=== PATIENT | male | born 1965 | race Caucasian/White ===

== ENCOUNTER → 2018-09-24 09:40 | Outpatient (CLI) | payer OTHER, SELFPAY ==
--- NOTE | 2018-09-24 | DI.RAD.S_ITS ---
PROCEDURE: XR CHEST 2V INDICATIONS: COUGH TECHNIQUE: 2 views of the chest were acquired. COMPARISON: None. FINDINGS: Surgical changes and devices: None. Lungs and pleura: No pleural effusions or pneumothorax. Mildly increased vascular markings and bilateral hilar region are seen with mild nodular wall thickening. No focal infiltrate. Mediastinum: Mediastinal contours are normal. Heart size is normal. Bones and chest wall: No suspicious bony abnormalities. Soft tissues appear unremarkable. IMPRESSION: Suggestion of mild reactive airway disease such as bronchitis or asthma. No focal infiltrate. Dictated by: Rainer Bustillo M.D. on 09/24/2018 at 11:24 Approved by: Rainer Bustillo M.D. on 09/24/2018 at 11:26
== END ==
DX: R05 Cough (principal)
CPT/HCPCS: 71046

== ENCOUNTER 2019-11-16 14:46 | Emergency (ER) | payer OTHER, SELFPAY ==
[2019-11-16 15:02] VITALS: BP 123/58; PULSE 97; RESP 18; TEMP 38.7; O2SAT 97; BMI 22.3
[2019-11-16 15:52] LABS: Influenza B - CEPHEID Flu B NEGATIVE (NEGATIVE)
[2019-11-16 16:19] LABS: Influenza A - CEPHEID Flu A POSITIVE (NEGATIVE)
[2019-11-16] MEDS: IBUPROFEN 400 MG TABLET PO (16:32)
--- NOTE | 2019-11-16 16:33 | ED_ITS ---
HPI - Fever <KWAME Viera - Last Filed: 11/16/19 21:11> General Chief Complaint: Fever Stated Complaint: Flu Like Symptoms Time Seen by Provider: 11/16/19 16:14 Source: patient Mode of arrival: Ambulatory Limitations: no limitations History of Present Illness HPI Narrative: 54-year-old male with history of IgG immune deficiency and exercise-induced asthma, presents emergency department complaining of rhinorrhea, cough, and fevers for the past 36 hours. He states he originally developed rhinorrhea and a dry cough 36 hours ago and developed a fever of 101F today. Patient states he travels for work but states he has not been to [facility] in the past 14 days. Patient states he did get a influenza vaccination this year. Patient states he takes Advair daily for his asthma and he feels like it is a little bit worse with chest congestion today with a cough but denies any wheezing or significant shortness of breath. Patient denies vomiting, diarrhea, abdominal pain, chest pain, or other concerns. Patient states he took 200 mg of ibuprofen at 10:00 a.m. and a pill of cold medication a few hours later. Related Data Previous Rx's Medication Instructions Recorded albuterol sulfate 2 puff INHALATION Q4-6H PRN #8.5 11/16/19 gram oseltamivir [Tamiflu] 75 mg PO BID 5 Days #10 cap 11/16/19 Allergies Allergy/AdvReac Type Severity Reaction Status Date / Time No Known Drug Allergies Allergy Verified 11/16/19 15:02 Review of Systems <KWAME Viera - Last Filed: 11/16/19 21:11> Review of Systems Narrative: REVIEW OF SYSTEMS: GENERAL: Reports fevers, see HPI. HENT: No head trauma or hearing loss. Reports rhinorrhea, see HPI. EYES: No vision changes. CARDIOVASCULAR: No chest pain or syncope. RESPIRATORY: Reports cough, see HPI. GASTROINTESTINAL: No vomiting, diarrhea, or constipation. MUSCULOSKELETAL: No trauma. INTEGUMENTARY: No rash, lesions, or pruritus. NEURO: No memory loss, or confusion. Patient History <KWAME Viera - Last Filed: 11/16/19 21:11> Medical History IgG deficiency (Acute) Social History Smoking Status: Never smoker Smoking Status: Never smoker alcohol intake frequency: a few times a month Substance Use Type: does not use Exam <KWAME Viera - Last Filed: 11/16/19 21:11> Initial Vital Signs Initial Vital Signs: Vital Signs Temperature 101.6 F H 11/16/19 15:02 Pulse Rate 97 H 11/16/19 15:02 Respiratory Rate 18 11/16/19 15:02 Blood Pressure 123/58 L 11/16/19 15:02 Pulse Oximetry 97 11/16/19 15:02 PHYSICAL EXAMINATION: GENERAL: Well groomed, alert, and cooperative. Answers questions promptly and appropriately. Vital signs noted. HENT: Normocephalic, atraumatic. Nares with clear rhinorrhea. Oropharynx with moderate erythema, tonsils not present, no exudate. EYES: Conjunctiva pink, sclera white, no periorbital swelling. No discharge. CHEST: Normal to inspection and without deformities. CARDIOVASCULAR: S1 and S2 sounds normal. Regular rate and rhythm, no murmurs, clicks, or bruits. RESPIRATORY: Normal respiratory rate, trachea midline, airway patent. No stridor, nasal flaring or accessory muscle use. Able to speak in full sentences. Lungs are clear in all trujillo without wheeze, rhonchi, or crackles. Dry cough heard occasionally during examination. MUSCULOSKELETAL: Normal gait and coordination. Equal tone and mass bilaterally. : Abdomen soft and nontender. EXTREMITIES: Moves all extremities. SKIN: Warm, dry, soft, appropriate color for ethnicity. No lesions, rashes, or wounds to visualized areas. NEURO: Alert and Oriented X 3. Good coordination. No ataxia or cognitive issues. PSYCH: Appropriate affect and mood. <Rosi Edwards MD - Last Filed: 11/30/19 18:38> Initial Vital Signs Initial Vital Signs: Vital Signs Temperature 101.6 F H 11/16/19 15:02 Pulse Rate 97 H 11/16/19 15:02 Respiratory Rate 18 11/16/19 15:02 Blood Pressure 123/58 L 11/16/19 15:02 Pulse Oximetry 97 11/16/19 15:02 Course <KWAME Viera - Last Filed: 11/16/19 21:11> Course Course Narrative: Patient was given ibuprofen in the emergency department to help with fever. Orders Ordered: Discontinued Medications Ibuprofen (Advil) 400 mg PO NOW ONE Stop: 11/16/19 16:29 Last Admin: 11/16/19 16:32 Dose: 400 mg Documented by: TYLER Vital Signs Vital signs: Vital Signs - 8 hr 11/16/19 15:02 11/16/19 16:45 Temperature 101.6 F H Pulse Rate 97 H 93 H Respiratory Rate 18 22 Blood Pressure 123/58 L 128/60 Pulse Oximetry 97 97 <Rosi Edwards MD - Last Filed: 11/30/19 18:38> Orders Ordered: Discontinued Medications Ibuprofen (Advil) 400 mg PO NOW ONE Stop: 11/16/19 16:29 Last Admin: 11/16/19 16:32 Dose: 400 mg Documented by: TYLER Vital Signs Vital signs: Vital Signs - 8 hr 11/16/19 15:02 11/16/19 16:45 Temperature 101.6 F H Pulse Rate 97 H 93 H Respiratory Rate 18 22 Blood Pressure 123/58 L 128/60 Pulse Oximetry 97 97 MDM - Fever <KWAME Viera - Last Filed: 11/16/19 21:11> Medical Records Attestation: I reviewed the patient's medical records. Lab Data Attestation: I reviewed the patient's lab results. Labs: Lab Results 11/16/19 Range/Units 15:07 Influenza A (RT-PCR) Flu a positive H (NEGATIVE) Influenza B (RT-PCR) Flu b negative (NEGATIVE) MDM Narrative Medical decision making narrative: This is a 54-year-old male with history of IgG immunodeficiency and exercise-induced asthma presents emergency department with rhinorrhea, cough, and fever for the past 36 hours. Patient was prescribed Tamiflu as he remains in the beneficial window and reports history of immunodeficiency. Respiratory Test is positive for influenza A. Patient does not show any signs of respiratory distress and lung examination is benign, no indication for imaging needed at this time. However, I did prescribe an albuterol inhaler as he states he has not used this for a while in case his cough or to worsen and for reports of chest congestion. Patient was educated about the importance of follow-up especially if symptoms worsen and or continue. Increased plan of care verbalized understanding. Less likely sepsis due to lack of other significant symptoms such as abdominal pain, wounds, lacerations, and a positive influenza test. <Rosi Edwards MD - Last Filed: 11/30/19 18:38> Lab Data Labs: Lab Results 11/16/19 Range/Units 15:07 Influenza A (RT-PCR) Flu a positive H (NEGATIVE) Influenza B (RT-PCR) Flu b negative (NEGATIVE) Discharge Plan Departure Patient Disposition: Home Clinical Impression: Influenza A Discharge Date/Time: 11/16/19 16:45 Instructions: DI for Influenza -- Adult Activity Restrictions/Additional Instructions: Thank you for entrusting me with your care today. As discussed, you tested positive for influenza A. I prescribed you Tamiflu to help decrease the severity and duration of your symptoms. I have also prescribed you albuterol to help with your asthma if it becomes worse, you may take this every 4-6 hours as needed for cough, shortness of breath, or wheezes. Follow up with your primary care provider in 1-2 weeks if your symptoms continue and return emergency department immediately if you develop worsening symptoms such as shortness of breath, chest pain, syncope, or other concerns. Prescriptions: New oseltamivir [Tamiflu] 75 mg capsule 75 mg PO BID 5 Days Qty: 10 RF: 0 albuterol sulfate 90 mcg/actuation HFA aerosol inhaler 2 puff INHALATION Q4-6H PRN (Reason: shortness of breath or wheezing) Qty: 8.5 RF: 0 Referrals: Justyn Guardado MD [Primary Care Provider] -
[2019-11-16 16:45] VITALS: BP 128/60; PULSE 93; RESP 22; O2SAT 97
== END 2019-11-16 16:45 | disposition home or self-care (01) ==
PROVIDERS: Emergency Medicine; Emergency Provider Nurse Practitioner; PCP Family Medicine
DX: J10.1 Influenza due to other identified influenza virus with other respiratory manifestations (principal)
CPT/HCPCS: 87502; 99283

== ENCOUNTER → 2020-02-05 15:51 | Outpatient (CLI) | payer OTHER, SELFPAY ==
--- NOTE | 2020-02-05 | DI.MRI.S_ITS ---
PROCEDURE: MR KNEE RT WO CON INDICATIONS: Other specified joint disorders, unspecified knee TECHNIQUE: Noncontrast sagittal PD fast spin echo and T2 fast spin echo with fat saturation, sagittal 3-D FLASH with fat saturation; coronal T1 spin echo and PD fast spin echo with fat saturation, and axial PD fast spin echo with fat saturation through the knee. COMPARISON: None. FINDINGS: Image quality: Excellent. Menisci: The medial and lateral menisci demonstrate normal morphology and internal signal. The meniscal root ligaments appear intact. Cruciate ligaments: The anterior and posterior cruciate ligaments appear intact. Medial structures: Low-grade MCL sprain is seen near its femoral insertion. The posterior oblique ligament, semimembranosus tendon insertions, oblique popliteal ligament, and meniscocapsular junction appear intact. Visualized portions of the pes anserinus tendons appear normal. No abnormal bursal fluid. Lateral structures: The lateral collateral ligament, long and short heads of the biceps femoris tendon appear intact. The popliteus tendon appears normal; the popliteofibular ligament appears intact. The posterosuperior and anteroinferior popliteomeniscal fascicles appear intact. The arcuate and fabellofibular ligaments appear intact, on either side of the lateral inferior geniculate artery. Iliotibial band appears normal. Anterior structures: The quadriceps and patellar tendons appear intact. Patellar alignment is normal. No femoral trochlear dysplasia or ventral trochlear prominence. No edema in the infrapatellar fat pad. Bones and cartilage: Mild to moderate tricompartmental osteoarthritis is seen more prominent in the medial femoral tibial compartment. Low grade chondromalacia in medial femoral tibial compartment is noted. High-grade chondromalacia involving medial facet of patella cartilage with underlying subchondral cyst formation and edema is noted, small osteochondral lesion is likely present and measures up to 4 mm in size. Low to moderate grade chondromalacia involving the lateral facet and apex of patella cartilage is also seen. Joint space: There is small to moderate amount of joint fluid, no gross intra-articular loose body. No Slater's cyst. Normal appearing synovial plicae are incidentally noted. IMPRESSION: 1. [id number] tricompartmental osteoarthritis more prominent in the medial femorotibial compartment. Low-grade chondromalacia in medial and lateral femoral tibial compartments. Moderate to high-grade chondromalacia involving medial facet of patella cartilage with underlying 3-4 mm osteochondral lesions. Low to moderate grade chondromalacia involving apex and lateral facet of patella cartilage. No fracture or dislocation. 2. Cruciate ligaments are intact. Low-grade proximal MCL sprain. 3. No evidence of focal meniscal tear. 4. Small to moderate joint effusion. No gross intra-articular loose body. Dictated by: Rainer Bustillo M.D. on 02/06/2020 at 9:22 Approved by: Rainer Bustillo M.D. on 02/06/2020 at 9:44
== END ==
PROVIDERS: PCP Family Medicine; Referring Provider Orthopaedic Surgery; Visit Provider Orthopaedic Surgery
DX: S83.411A Sprain of medial collateral ligament of right knee, initial encounter (principal); M17.11 Unilateral primary osteoarthritis, right knee; M22.41 Chondromalacia patellae, right knee
CPT/HCPCS: 73721

== ENCOUNTER → 2020-07-07 11:31 | Outpatient (CLI) | payer OTHER, SELFPAY ==
[2020-07-08 09:35] LABS: COVID19 Sendout Not Detected (Not Detect)
== END ==
PROVIDERS: PCP Family Medicine; Visit Provider Physician Assistant
DX: Z11.59 Encounter for screening for other viral diseases (principal)
CPT/HCPCS: 87635

== ENCOUNTER → 2020-07-23 12:50 | Outpatient (CLI) | payer OTHER, SELFPAY ==
--- NOTE | 2020-07-23 | DI.RAD.S_ITS ---
PROCEDURE: XR CHEST 2V INDICATIONS: Chest pain, unspecified TECHNIQUE: 2 views of the chest were acquired. COMPARISON: [facility], CR, XR CHEST 2V, 09/24/2018, 9:40. FINDINGS: Surgical changes and devices: None. Lungs and pleura: Lungs are clear. No pleural effusions or pneumothorax. Mediastinum: Mediastinal contours are normal. Heart size is normal. Bones and chest wall: No suspicious bony abnormalities. Soft tissues appear unremarkable. IMPRESSION: No acute finding. Dictated by: Rehan Mejia M.D. on 07/23/2020 at 13:40 Approved by: Rehan Mejia M.D. on 07/23/2020 at 13:55
== END ==
PROVIDERS: PCP Family Medicine; Referring Provider Family Medicine; Visit Provider Family Medicine
DX: R07.9 Chest pain, unspecified (principal)
CPT/HCPCS: 71046

== ENCOUNTER → 2020-09-19 08:54 | Outpatient (CLI) | payer OTHER, SELFPAY ==
[2020-09-19 11:33] LABS: COVID19 -Nasal RAPID Negative (Negative)
== END ==
PROVIDERS: PCP Family Medicine; Visit Provider Nurse Practitioner
DX: Z11.59 Encounter for screening for other viral diseases (principal)
CPT/HCPCS: 87635

== ENCOUNTER 2020-09-21 13:17 | Day surgery (SDC) | payer OTHER, SELFPAY ==
--- NOTE | 2020-09-21 12:18 | P.HP_ITS ---
History of Present Illness History of Present Illness Date Patient Seen: 09/21/20 Chief complaint: SDC Narrative: 55 year old male in comes in today for consideration of a screening colonoscopy. One previous colonoscopy secondary to GI upset, reportedly normal. Results not available at time of dictation. There have been no lower GI symptoms suggesting disease such as change in bowel habits, bleeding, abdominal pain or anemia. There's been no known family history of colon cancer or colon polyps, adopted. Overall health issues have been stable, including no major cardiac events for at least 6 weeks. PCP: Dr. 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 Patient History Medical History (Updated 12/01/19 @ 00:00 by ) IgG deficiency Family & Social History Tobacco & Substance use: Smoking Status Never smoker alcohol intake frequency a few times a month Substance Use Type does not use Meds Home Medications and Allergies Home Medications Medication Instructions Recorded Confirmed Type albuterol sulfate 2 puff INHALATION Q4-6H PRN #8.5 11/16/19 09/21/20 Rx gram esomeprazole magnesium [Nexium] 10 mg PO 09/21/20 History pravastatin 20 mg PO BEDTIME 09/21/20 09/21/20 History Allergies Allergy/AdvReac Type Severity Reaction Status Date / Time No Known Drug Allergies Allergy Verified 07/07/20 11:29 Review of Systems Review of Systems ROS: Yes All systems reviewed with the patient and are negative except as other weaver documented Exam Narrative Exam Narrative: GENERAL: Alert and oriented, appearing stated age and in no acute distress. HEENT: Head normocephalic/atraumatic. Pupils equal, round, and reactive to light and accomodation. Extraocular muscles intact. Tympanic membranes clear. Nasal mucosa moist, septum midline. Oral mucosa moist, no lesions. Neck soft and supple, no lymphadenopathy. LUNGS: Clear to ausculation bilaterally, no wheezes, rhonchi or rales. CV: Normal S1 and S2 with regular rate and rhythm, no audible murmurs, rubs or gallops. ABDOMEN: Soft, non-tender, non-distended, no organomegaly. Positive bowel sounds. EXTREMITIES: No clubbing, cyanosis, or edema. NEURO: Cranial nerves II through XII grossly intact, no focal deficits. PSYCH: Alert and oriented x 3. SKIN: No concerning lesions. Assessment & Plan Assessment & Plan narrative: 1. Screening for colon cancer Plan for colonoscopy. The nature and character of the procedure as well as anticipated results were discussed. The possibility of not completing the procedure was also discussed. Possible complications including aspiration pneumonia, bleeding, perforation and reaction to medications either for sedation or preparation and missed lesions were discussed. Questions were answered and proceeding to the colonoscopy was elected. Informed consent signed. I sincerely appreciate the referral allowing me to participate in this patient's care. Please contact me with any questions or concerns.
--- NOTE | 2020-09-21 12:22 | PM.OP.ENDO ---
Operative Date/Time/Diagnoses Date of procedure: 09/21/20 Procedure Notes SCOAP/Timeout: 2:55 p.m. Procedure in detail: ENDOSCOPIST: Courtney Louis MD Sedation RN: Jonathan Epps RN Sedation start time: 2:56 p.m. Sedation end time: 3:20 p.m. PROCEDURE: Colonoscopy INDICATIONS: 1. Screening for colon cancer MEDICATION: Levsin 0.125 mg sublingual, incremental doses of Versed and fentanyl until appropriate level sedation achieved. ASA CLASS: 2 CECAL WITHDRAWAL TIME: 13 minutes COMPLICATIONS: None. EXTENT OF PROCEDURE: Cecum. QUALITY OF PREP: Good with portions of liquid stool. PROCEDURE: Prior to insertion of the colonoscope, a digital rectal examination was accomplished with circumferential palpation of the distal rectal mucosa without significant findings being noted. The high-definition colonoscope was passed into the rectum in the usual fashion and advanced over to the cecum without difficulty. The ileocecal valve, appendiceal stoma, and medial wall all could be inspected and no abnormalities were seen. ASCENDING COLON: As the colonoscope was withdrawn, care was taken to expose and inspect the haustral folds and no abnormalities were seen. HEPATIC FLEXURE: Normal, no polyps, diverticula or other abnormalities. TRANSVERSE COLON: Normal, no polyps, diverticula or other abnormalities. DESCENDING COLON: Normal, no polyps, diverticula or other abnormalities. SIGMOID COLON: Normal, no polyps, diverticula or other abnormalities. RECTUM: Normal. J maneuver was produced. There was no significant perianal disease. The J maneuver was broken. The remainder of the rectum was inspected and there was no external hemorrhoid disease. The scope was withdrawn. IMPRESSION: 1. Normal colonoscopy PLAN: 1. Repeat colonoscopy in 10 years. The possibility of a missed lesion including a malignancy has been discussed with the patient previously. Potential alarm symptoms have been discussed and should be reported immediately.
[2020-09-21 13:36] VITALS: BMI 47.6
[2020-09-21] MEDS: LACTATED RINGERS 1,000 ML 200 ML IV (13:40)
[2020-09-21] MEDS: HYOSCYAMINE 0.125 MG TABLET PO (14:01)
[2020-09-21] MEDS: MIDAZOLAM 5 MG/5 ML VIAL IV (14:59)
[2020-09-21] MEDS: fentaNYL 250 MCG/5 ML INJ IV (14:59)
[2020-09-21 15:26] VITALS: BP 104/61; PULSE 51; RESP 16; TEMP 37.1; O2SAT 97
[2020-09-21 15:31] VITALS: BP 103/66; PULSE 61; RESP 12; O2SAT 98
[2020-09-21 15:36] VITALS: BP 106/58; PULSE 53; RESP 16; O2SAT 97
[2020-09-21 15:39] VITALS: BP 116/72; PULSE 58; RESP 15; TEMP 37.1; O2SAT 98
--- NOTE | 2020-09-21 15:57 | SUR.PHASEII ---
Pt up and ambulating gait steady, TONY Wong giving pt all dc instructions and then dc pt in stable condition via wc to front curbside
== END 2020-09-21 15:58 | disposition home or self-care (01) ==
PROVIDERS: PCP Family Medicine; Referring Provider Family Medicine; Visit Provider Student in an Organized Health Care Education/Training Program
PROC: 0DJD8ZZ Inspection of Lower Intestinal Tract, Via Natural or Artificial Opening Endoscopic (ICD-10-PCS; CPT 45378; principal; 2020-09-21 14:30)
DX: Z12.11 Encounter for screening for malignant neoplasm of colon (principal); E78.5 Hyperlipidemia, unspecified; K21.9 Gastro-esophageal reflux disease without esophagitis; J45.909 Unspecified asthma, uncomplicated; N40.0 Benign prostatic hyperplasia without lower urinary tract symptoms
CPT/HCPCS: 45378; J2250; J3010

== ENCOUNTER → 2021-04-05 07:59 | Outpatient (CLI) | payer OTHER, SELFPAY ==
--- NOTE | 2021-04-05 08:01 | DI.ECHO.S_ITS ---
[place] [facility] +---------+ : : [address] : : : : [id number] : : : : Phone: [phone] Echocardiogram Report + + :Name: SUSANA STEVE Study Date: 04/05/2021 Height: 71 in : :[facility] ReadingLocation: Weight: 155 lb : : Gender: Male BSA: 1.9 m2 : :: 1965 Age: 55 yrs BP: 112/73 mmHg: :Reason For Study: PALPITATIONS : :Ordering Physician: EFRAIN, : :CORY Performed By: Karen Beck : :Referring: CORY ZUNIGA : + + Interpretation Summary Patient states history of PFO with positive bubble study. Normal left ventricle size with ejection fraction 50-55%. Borderline global hypokinesis of the left ventricle. Left ventricular global longitudinal strain average is -18.5%. Mildly dilated left atrium. No significant valvular abnormality. Procedure: A two-dimensional transthoracic echocardiogram with color flow and Doppler was performed. The study quality was technically adequate. There is no prior echocardiogram noted for this patient. The patient was in sinus bradycardia with heart rates between 46-52 bpm during the exam. Left Ventricle: The left ventricle is normal in size and wall thickness. The ejection fraction is estimated to be 50-55%. Left ventricular global longitudinal strain average is -18.5%. There is borderline global hypokinesis of the left ventricle. Diastolic parameters suggest probable normal left ventricular diastolic function and normal filling pressures. Right Ventricle: The right ventricle is normal in size and function. Atria: The left atrium is mildly dilated. Right atrial size is normal. Mitral Valve: There is a flat closure plane of the the mitral valve leaflets. The mitral valve is normal in structure and function. There is trace mitral regurgitation. Aortic Valve: The aortic valve is trileaflet. The aortic valve opens well. There is no aortic valve stenosis. There is trace aortic regurgitation. Tricuspid Valve: The tricuspid valve is normal in structure and function. There is trace tricuspid regurgitation. Pulmonic Valve: The pulmonic valve leaflets are thin and pliable; valve motion is normal. There is mild pulmonic regurgitation. Great Vessels: The aortic root is normal size. The ascending aorta is mildly enlarged. The IVC is of normal diameter and collapses greater than 50% with a sniff. This suggests a low right atrial pressure of 3 mm Hg. Pericardium/ Pleura There is no pericardial effusion. There is no pleural effusion. MMode/2D Measurements & Calculations LVIDd: 5.5 cm LVOT diam: 2.5 cm LVIDs: 4.1 cm Ao root diam: 3.3 cm FS: 25.3 % asc Aorta Diam: 3.5 cm EPSS: 1.4 cm Ao Arch Diam (Prox Trans): 2.6 cm IVSd: 0.84 cm LVPWd: 0.82 cm LV morataya. diameter/BSA (cm/m^2): 2.9 LV sys. diameter/BSA (cm/m^2): 2.2 LA A2 area: 22.0 cm2 RA long axis: 5.3 cm LA A4 area: 18.9 cm2 RA area: 18.9 cm2 LA length (vol): 5.2 cm RA vol: 57.7 ml LA vol: 68.1 ml RA : 30.5 ml/m2 LA vol index: 36.0 ml/m2 IVC diam: 1.8 cm RVD1 (basal): 4.3 cm RVD2 (mid): 3.8 cm TAPSE: 2.0 cm Doppler Measurements & Calculations Ao V2 max: 131.0 cm/sec LVOT Max Kamaljit: 74.8 cm/sec Ao V2 mean: 94.7 cm/sec LV V1 max P.2 mmHg Ao max P.9 mmHg LV V1 VTI: 15.7 cm Ao mean P.0 mmHg TIFFANIE(I,D): 2.6 cm2 Ao V2 VTI: 29.2 cm TIFFANIE(V,D): 2.8 cm2 sev ratio: 0.54 TIFFANIE indexed to BSA (cm^2/m^2): 1.4 MV E max kamaljit: 74.2 cm/sec TR max kamaljti: 200.6 cm/sec MV A max kamaljit: 48.7 cm/sec TR max P.1 mmHg MV E/A: 1.5 PA V2 max: 86.6 cm/sec Med Peak E' Kamaljit: 5.8 cm/sec PA V2 mean: 55.4 cm/sec E/E' med: 12.8 PA mean P.4 mmHg Lat Peak E' Kamaljit: 9.9 cm/sec PA pr(Accel): 31.0 mmHg E/E' lat: 7.5 E/e' average: 10.2 MV dec time: 0.16 sec SV(LVOT): 76.3 ml Electronically signed by: Gem Villar on Reading Physician:04/06/2021 09:34 AM
== END ==
PROVIDERS: PCP Family Medicine; Referring Provider Internal Medicine; Visit Provider Internal Medicine
DX: I37.1 Nonrheumatic pulmonary valve insufficiency (principal); I77.89 Other specified disorders of arteries and arterioles; R00.2 Palpitations
CPT/HCPCS: 93306

== ENCOUNTER → 2021-05-20 08:58 | Outpatient (CLI) | payer OTHER, SELFPAY ==
[2021-05-20 10:32] LABS: COVID19 -Nasal RAPID Negative (Negative)
== END ==
PROVIDERS: PCP Family Medicine; Visit Provider Specialist
DX: Z20.822 Contact with and (suspected) exposure to COVID-19 (principal)
CPT/HCPCS: 87635; C9803

== ENCOUNTER 2021-05-21 06:50 | Day surgery (SDC) | payer OTHER, SELFPAY ==
[2021-05-21] VITALS (7 sets, daily range): BP systolic 96–112; BP diastolic 56–69; PULSE 47–61; RESP 10–18; TEMP 36.3–36.6; O2SAT 96–99; BMI 22.6
--- NOTE | 2021-05-21 | PATH_ITS ---
[facility] Accession Number: [id number] . 01 Material submitted: . PART A: stomach - GASTRIC ANTRUM PART B: esophagus, E-G Junction - GE JUNCTION . 02 Diagnosis: A. Gastric Antrum, Biopsies: Gastric antral and body mucosa with minimal chronic inflammation and features of reactive gastropathy. Negative for Helicobacter organisms by immunohistochemistry. Negative for intestinal metaplasia. Negative for dysplasia or malignancy. . B. Gastroesophageal Junction, Biopsy: Squamocolumnar junctional mucosa with reactive features of reflux esophagitis. Negative for specialized intestinal metaplasia or fungal organisms on AB/PAS stain. Negative for dysplasia or malignancy. MRV 05/26/2021 1308 Local . 02 Electronically signed: . Ayan Duke MD, PhD, Pathologist NPI- [id number] . 01 Gross description: . Part A: GASTRIC ANTRUM: Received in formalin are multiple fragment(s) of hurtado, soft tissue measuring 0.9 x 0.4 x 0.2 cm in aggregate submitted entirely in 1 cassette(s) Part B: GE JUNCTION: Received in formalin are multiple fragment(s) of hurtado, soft tissue measuring 0.7 x 0.4 x 0.1 cm in aggregate submitted entirely in 1 cassette(s) /TIFFANIE 05/22/2021 0522 Local . 02 Microscopic: . A. An immunohistochemical stain was performed to evaluate for Helicobacter organisms and is negative. The control stain showed appropriate reactivity. . B. An AB/PAS stain is negative for goblet cells or fungal organisms. A control stain shows appropriate reactivity. . . * This test was developed and its performance characteristics determined by [facility]. It has not been cleared or approved by the U.S. Food and Drug Administration. The FDA has determined that such clearance or approval is not necessary. This test is used for clinical purposes. It should not be regarded as investigational or for research. . 02 Pathologist provided ICD-10: K29.70, K21.00 . 02 CPT . 105314, 396925, Y38030, [id number] Performed at: 01 [facility] [address] [id number] MD Roger Cantor MD Phone: [phone] Performed at: [address] [id number] MD Yasmine Spann MD Phone: [phone]
[2021-05-21] MEDS: LACTATED RINGERS 1,000 ML 100 ML IV (07:22)
--- NOTE | 2021-05-21 07:40 | P.HP_ITS ---
History of Present Illness History of Present Illness Chief complaint: [facility] [place] Narrative: The patient is gentleman who is been having problems with vague throat discomfort on the right side. He has seen an ENT physician who was concerned could be due to reflux which she has chronically. His dose of proton pump inhibitors was increased but no affect on this throat sensation. He is brought in for an EGD. Patient History Medical History Asthma GERD (gastroesophageal reflux disease) High cholesterol IgG deficiency SLAP lesion of left shoulder Surgical History H/O lumbosacral spine surgery H/O shoulder surgery H/O sinus surgery H/O Spinal surgery Family & Social History Social History: household members spouse Tobacco & Substance use: Smoking Status Never smoker alcohol intake current alcohol intake frequency a few times a week Substance Use Type does not use Meds Home Medications and Allergies Home Medications Medication Instructions Recorded Confirmed Type albuterol sulfate 90 mcg/actuation 2 puff INHALATION Q4-6H PRN #8.5 11/16/19 05/21/21 Rx aerosol inhaler gram esomeprazole magnesium 20 mg 10 mg PO 09/21/20 04/08/21 History capsule,delayed release (Nexium) pravastatin 20 mg tablet 20 mg PO BEDTIME 09/21/20 05/21/21 History cholecalciferol (vitamin D3) 125 5,000 unit PO DAILY tab 04/08/21 04/08/21 History mcg (5,000 unit) tablet (Vitamin D3) loratadine 10 mg tablet (Claritin) 10 mg PO DAILY 04/08/21 05/21/21 History omega 6-lje-vtu-fish oil 1,200 mg cap PO 04/08/21 04/08/21 History (144 mg-216 mg) capsule (Fish Oil) Allergies Allergy/AdvReac Type Severity Reaction Status Date / Time No Known Drug Allergies Allergy Verified 05/21/21 07:13 Review of Systems Review of Systems Narrative: No cardiac GI or symptoms except as above. Patient does use an inhaler Exam Vital Signs (past 8 hours): - 05/21/21 07:23 Temperature 97.3 F L Pulse Rate 57 L Respiratory Rate 18 Blood Pressure 112/69 Pulse Oximetry 99 Oxygen Delivery Method Room Air Narrative Exam Narrative: Pleasant cooperative patient no apparent distress. Lungs are clear to auscultation. No rales or rhonchi. Heart regular rate and rhythm no murmur gallop. Abdomen is soft nontender without mass. No obvious hernias. Patient is alert and oriented x3. Assessment & Plan Assessment & Plan narrative: Patient for an EGD. He understands the procedures he has had a before the risks of bleeding and perforation
--- NOTE | 2021-05-21 07:44 | PM.PREOP ---
Pre-operative Note COVID-19 COVID-19 status: Negative Result date/Date tested (Pos, Neg/Pending): 05/20/21 Interval Note History & Physical reviewed/Exam performed by Physician: Yes Changes to H&P: No ASA Class (for procedural sedation): II
[2021-05-21] MEDS: MIDAZOLAM 5 MG/5 ML VIAL IV (07:48)
[2021-05-21] MEDS: fentaNYL 250 MCG/5 ML INJ IV (07:49)
[2021-05-21] MEDS: LIDOCAINE 4% SOLN 50 ML 20 ML TOP (07:49)
--- NOTE | 2021-05-21 08:11 | PM.OP.ENDO ---
Operative Date/Time/Diagnoses Date of procedure: 05/21/21 Time of procedure: 08:11 Pre-op diagnosis: Chronic reflux disease. Pain in the throat. Post-op diagnosis: same (Significant inflammation in the region of the a retinoid says and surrounding soft tissues of the larynx. The esophagus itself looked normal until we reached the GE junction where there may be evidence of Presley's esophagus. Biopsies taken here. Very mild inflammation of the distal stomach. Bio) Procedure & Clinicians Study performed: EGD with cold biopsy Same procedure as scheduled: Yes Indications: Throat pain with chronic reflux. Attempt to determine cause of the pain when he swallows. Surgeon: Blaze Herring Procedure Notes SCOAP/Timeout: Performed Procedure in detail: The patient had topical anesthetic applied to oropharynx. She was placed in the left lateral decubitus position and underwent IV sedation directed by the surgeon consisting of fentanyl and Versed. A bite block was inserted and the scope was advanced through it into the esophagus. It was difficult to enter into the esophagus and it appeared that the entrance into the esophagus was displaced slightly posteriorly. There was significant inflammation of the soft tissues in the region of the epiglottis and arytenoids and surrounding soft tissues. The vocal cords themselves did not look inflamed. The esophagus was unremarkable. GE junction was noted at 40 cm from the incisors. There was tongues of red tissue extending above the GE junction suggestive of Presley's esophagus.. The stomach insufflated well. There was mild inflammation of the antrum. The pyloric channel was widely patent. The duodenum was unremarkable to the 3rd part. Scope was brought back into the stomach and retroflexed. The proximal stomach appeared to be normal. I did not see evidence of a hiatal hernia from below. I took random biopsies of the antrum due to the mild inflammation though I suspect that these will be unremarkable.. The scope was straightened and brought out through the esophagus again. Biopsies were taken at the GE junction. No other lesions were seen. The scope was slowly removed. I examined the area the upper esophagus very carefully and it all looked entirely normal. Other than the mild displacement which may be a normal variant of the entrance into the esophagus I saw no other findings in that region to suggest a cause of the patient's discomfort except the inflammation above the entrance into the of the esophagus. The patient tolerated the procedure well. There were no apparent complications Scope withdrawal time: Not applicable Sedation minutes: 14 Post-procedure Recommendations: Continue medication(s) Plan for aftercare: Will call with results. May need a swallowing study. Follow up: as needed Disposition: PACU
== END 2021-05-21 08:54 | disposition home or self-care (01) ==
PROVIDERS: PCP Family Medicine; Referring Provider Specialist; Visit Provider Specialist
PROC: 0DJ08ZZ Inspection of Upper Intestinal Tract, Via Natural or Artificial Opening Endoscopic (ICD-10-PCS; CPT 43235; principal; 2021-05-21 07:45)
DX: K21.00 Gastro-esophageal reflux disease with esophagitis, without bleeding (principal); E78.00 Pure hypercholesterolemia, unspecified; J45.909 Unspecified asthma, uncomplicated; K29.50 Unspecified chronic gastritis without bleeding
CPT/HCPCS: 43239; 99152; J2250; J3010

== ENCOUNTER → 2021-11-26 12:06 | Outpatient (CLI) | payer OTHER, SELFPAY ==
--- NOTE | 2021-11-26 12:15 | DI.CT.S_ITS ---
PROCEDURE: CT SOFT TISSUE NECK W CON INDICATIONS: neck mass TECHNIQUE: After the administration of intravenous contrast, 3.0 mm axial sections acquired from the sella to the aortic arch. Additional oblique axial 3.0 mm sections acquired through the pharynx. 3 mm thick coronal and sagittal reformats were generated. For radiation dose reduction, the following was used: automated exposure control. COMPARISON: None. FINDINGS: Image quality: Excellent. Lymph nodes: No enlarged lymph nodes seen throughout the neck. Vessels: Visualized vasculature appears patent. Neck spaces: The area of clinical concern is marked along the posterior neck, just to the left of the midline. At this site, no masses are seen. No abnormal enhancement. No lipomas or lymph nodes are seen. No cysts are seen. No subcutaneous lesions are detected. The oropharynx, nasopharynx, and pharynx demonstrate no mucosal lesions. The vocal cords, false vocal cords, pyriform sinuses, epiglottis, vallecula, and tongue base all appear normal. Glands: The parotid and submandibular glands appear normal. Thyroid gland demonstrates no significant abnormality. Miscellaneous: Visualized brain and orbits appear normal. Mild scarring change can be seen involving the lung apices. Superficial soft tissues appear normal. Bones: Just deep to the site of clinical concern, the spinous process of the C2 level is seen, which appears relatively prominent and demonstrates a appearance posteriorly, as seen on series 4, image 35 and on series 6, image 27. No suspicious bony lesions. Visualized sinuses and mastoids appear unremarkable. An artificial disc can be seen at the C5-C6 level. Focal degenerative changes seen at this level, with posteriorly directed endplate osteophytes. Focal degenerative change is seen involving the C1-C2 interface anteriorly. Accentuated thoracic kyphosis is seen. IMPRESSION: The area of clinical concern likely corresponds to the spinous process of the C2 level, which appears somewhat prominent and demonstrates a bifid appearance posteriorly. No soft tissue masses or abnormal enhancement can be seen at this site or elsewhere. Dictated by: Rex Wei M.D. on 11/26/2021 at 11:57 Approved by: Rex Wei M.D. on 11/26/2021 at 12:00
== END ==
PROVIDERS: PCP Family Medicine; Referring Provider Family Medicine; Visit Provider Family Medicine
DX: R22.1 Localized swelling, mass and lump, neck (principal)
CPT/HCPCS: 70491

== ENCOUNTER → 2022-08-22 15:05 | Outpatient (CLI) | payer OTHER, SELFPAY ==
--- NOTE | 2022-08-22 | DI.RAD.S_ITS ---
PROCEDURE: XR SHOULDER LT MIN 2V INDICATIONS: Left shoulder pain TECHNIQUE: 3 views of the shoulder were acquired. COMPARISON: None. FINDINGS: Bones: There is prior surgery involving proximal left humeral shaft with postsurgical changes. Moderate acromioclavicular joint and glenohumeral joint osteoarthritic changes are noted. No fractures or dislocations. No suspicious bony lesions. Visualized ribs appear intact. Soft tissues: No suspicious soft tissue calcifications. IMPRESSION: Moderate left shoulder joint osteoarthritis. No acute fracture or dislocation. Postsurgical changes in proximal humeral shaft. No gross soft tissue abnormalities. Dictated by: Rainer Bustillo M.D. on 08/22/2022 at 17:09 Approved by: Rainer Bustillo M.D. on 08/22/2022 at 17:10
--- NOTE | 2022-08-22 | DI.RAD.S_ITS ---
PROCEDURE: XR HAND RT MIN 3V INDICATIONS: Right hand pain TECHNIQUE: 3 views of the hand(s) acquired. COMPARISON: None. FINDINGS: Bones: No fractures or dislocations. Carpal bones are normally aligned. Mild osteoarthritic changes throughout right hand and wrist joints are seen with joint space narrowing and subchondral sclerosis. No gross bony erosive changes. No suspicious bony lesions. Soft tissues: No suspicious soft tissue calcifications. IMPRESSION: Mild right hand and wrist joint osteoarthritis. No fracture or dislocation. No gross bony erosive changes. Dictated by: Rainer Bustillo M.D. on 08/22/2022 at 17:09 Approved by: Rainer Bustillo M.D. on 08/22/2022 at 17:09
== END ==
PROVIDERS: PCP Family Medicine; Referring Provider Family Medicine; Visit Provider Family Medicine
DX: M19.012 Primary osteoarthritis, left shoulder (principal); M19.041 Primary osteoarthritis, right hand; M19.031 Primary osteoarthritis, right wrist; M25.512 Pain in left shoulder; M79.641 Pain in right hand
CPT/HCPCS: 73030; 73130

== ENCOUNTER → 2022-12-27 11:41 | Outpatient (CLI) | payer OTHER, SELFPAY ==
--- NOTE | 2022-12-27 | DI.MRI.S_ITS ---
PROCEDURE: MR SHOULDER LT WO CON INDICATIONS: Pain in left shoulder TECHNIQUE: Noncontrast oblique coronal T2 fast spin echo with fat saturation, oblique sagittal T1 spin echo and T2 fast spin echo with fat saturation, axial T1 spin echo and T2 fast spin echo with fat saturation through the shoulder. COMPARISON: [facility], CR, XR SHOULDER 2+ VIEWS LEFT, 10/18/2022, 10:44. FINDINGS: Image quality: Excellent. Rotator cuff: There is moderate grade partial articular sided tearing of the supraspinatus tendon at the distal insertion measuring approximately 8 mm in anterior-posterior dimension superimposed on moderate supraspinatus and infraspinatus tendinosis. The teres minor tendon is intact. There is focal low-grade intrasubstance tearing of the subscapularis tendon at the superior insertion. There is no significant rotator cuff muscle atrophy. Bones and bursae: No acute trabecular bone injury or fracture. Mild chronic traction cystic changes of the posterosuperior humeral head. Postsurgical changes are seen at the superior glenoid from prior labral repair. A surgical anchor is seen in the proximal humeral shaft related to prior biceps tenodesis. Mild acromioclavicular osteoarthrosis. Trace subacromial/subdeltoid bursal fluid is expected in the postsurgical setting. No significant glenohumeral effusion. Capsule and soft tissues: Postsurgical changes from prior superior labral repair. There is [id number] signal at the superior to posterosuperior labrum that approaches fluid signal intensity and may represent fibrovascular granulation tissue or recurrent tearing. Status post biceps tenodesis with an intact surgical construct. Glenohumeral ligaments are intact. IMPRESSION: 1. Postsurgical changes from superior labral repair with hyperintense signal at the superior to posterosuperior labrum that may represent fibrovascular granulation tissue, but is suspicious for recurrent nondisplaced tearing. 2. Status post biceps tenodesis with an intact surgical construct. The tendon anchor accounts for the reported osseous lesion seen on radiographs from 10/18/2022. 3. Moderate grade partial articular sided tearing of the supraspinatus tendon at the distal insertion measuring 8 mm in anterior-posterior dimension superimposed chronic supraspinatus and infraspinatus tendinosis. 4. Mild subscapularis tendinosis and focal low-grade partial intrasubstance tearing at the superior insertion. 5. Mild acromioclavicular joint osteoarthrosis. Approved by: Adam Meléndez M.D. on 12/27/2022 at 13:48
== END ==
PROVIDERS: PCP Family Medicine; Referring Provider Orthopaedic Surgery; Visit Provider Orthopaedic Surgery
DX: M75.112 Incomplete rotator cuff tear or rupture of left shoulder, not specified as traumatic (principal); M19.012 Primary osteoarthritis, left shoulder; M67.912 Unspecified disorder of synovium and tendon, left shoulder; M25.512 Pain in left shoulder
CPT/HCPCS: 73221

== ENCOUNTER → 2023-12-18 09:39 | Outpatient (CLI) | payer OTHER, SELFPAY ==
--- NOTE | 2023-12-18 | DI.RAD.S_ITS ---
PROCEDURE: XR FOOT RT MIN 3V INDICATIONS: great toe pain TECHNIQUE: 3 views of the foot were acquired. COMPARISON: None. FINDINGS: Bones: No fractures or dislocations. No suspicious bony lesions. Moderate 1st MTP and mild diffuse interphalangeal joint space narrowing with periarticular osteophyte formation. There is flattening of the 1st metatarsal head. Soft tissues: No tibiotalar joint effusion. Achilles tendon appears normal. IMPRESSION: Moderate 1st MTP and mild diffuse interphalangeal joint degeneration. If pain persist with conservative management, consider cross-sectional imaging such as CT or MRI. Dictated by: Paul Stout [facility] Interpreted: Marlene Hoskins MD on 12/18/2023 at 10:08 Transcribed by: ALEXANDRA on 12/18/2023 at 10:09 Approved by: Marlene Hoskins M.D. on 12/18/2023 at 14:55
== END ==
PROVIDERS: PCP Family Medicine; Referring Provider Family Medicine; Visit Provider Family Medicine
DX: M19.071 Primary osteoarthritis, right ankle and foot (principal); M79.674 Pain in right toe(s)
CPT/HCPCS: 73630

== ENCOUNTER → 2024-02-16 16:11 | Outpatient (CLI) | payer OTHER, SELFPAY ==
--- NOTE | 2024-02-16 16:12 | DI.MRI.S_ITS ---
PROCEDURE: MR KNEE RT WO CON INDICATIONS: TENDERNESS AT JOINT LINE/INTERFERING WITH ADL's TECHNIQUE: Noncontrast sagittal PD fast spin echo and T2 fast spin echo with fat saturation, sagittal 3-D FLASH with fat saturation; coronal T1 spin echo and PD fast spin echo with fat saturation, and axial PD fast spin echo with fat saturation through the knee. COMPARISON: [facility], MR, MR KNEE RT WO CON, 02/05/2020, 15:57. FINDINGS: Image quality: Excellent. Menisci: The medial and lateral menisci demonstrate normal morphology and internal signal. The meniscal root ligaments appear intact. Cruciate ligaments: The anterior and posterior cruciate ligaments appear intact. Medial structures: The medial collateral ligament appears mildly thickened with surrounding soft tissue edema. Visualized portions of the pes anserinus tendons appear normal. No abnormal bursal fluid. Lateral structures: The lateral collateral ligament, long and short heads of the biceps femoris tendon appear intact. The popliteus tendon appears normal. Iliotibial band appears normal. Anterior structures: Low-grade partial-thickness tear involving medial patellofemoral ligament near its femoral insertion is seen. Distal quadriceps tendinosis and proximal patellar tendinosis at their patellar insertions is seen. Patellar alignment is normal. Edema within the infrapatellar fat pad is seen. Bones and cartilage: Extensive marrow edema involving mid to lateral portion of patella , antral medial aspect of medial femoral condyle and anterior lateral periphery of lateral femoral condyle. No discrete fracture line or cortical disruption is seen. [id number] tricompartmental osteoarthritis and chondromalacia is seen most notably in patellofemoral compartment. Joint space: There is moderate knee joint fluid. No Slater's cyst. Normal appearing synovial plicae are incidentally noted. IMPRESSION: 1. Bony contusion involving patellofemoral compartment as described above. No fracture or dislocation. 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 Moderate joint effusion, no loose bodies. 2. No evidence of focal meniscal tear. 3. The cruciate ligaments are intact. 4. Low-grade MCL sprain. 5. Distal quadriceps tendinosis and proximal patellar tendinosis. Dictated by: Rainer Bustillo M.D. on 02/16/2024 at 17:00 Approved by: Rainer Bustillo M.D. on 02/16/2024 at 17:06
== END ==
PROVIDERS: PCP Family Medicine; Referring Provider Orthopaedic Surgery; Visit Provider Orthopaedic Surgery
DX: S83.411A Sprain of medial collateral ligament of right knee, initial encounter (principal); S80.01XA Contusion of right knee, initial encounter; M23.91 Unspecified internal derangement of right knee; M17.11 Unilateral primary osteoarthritis, right knee; M22.41 Chondromalacia patellae, right knee; M25.461 Effusion, right knee
CPT/HCPCS: 73721